=== PATIENT | male | born 1985 | race Caucasian/White ===

== ENCOUNTER 2024-06-03 10:06 | Day surgery (SDC) | payer OTHER ==
[2024-06-03 11:13] VITALS: BP 137/84; TEMP 98
[2024-06-03] MEDS: WATER IVPB SCH (11:19)
[2024-06-03] MEDS: RISANKIZUMAB RZAA IVPB SCH (11:19)
[2024-06-03] MEDS: DEXTROSE 5% IVPB SCH (11:19)
== END 2024-06-03 13:02 | disposition home or self-care (01) ==
LOC: ONC/OP 10:06
PROVIDERS: ATTEND Internal Medicine
DX: K50.90 Crohn's disease, unspecified, without complications (principal)
CPT/HCPCS: 96413; J7070

== ENCOUNTER 2025-10-14 06:19 | Day surgery (SDC) | payer OTHER ==
[2025-10-13 12:31] VITALS: BMI 49.4
[2025-10-14] MEDS ORDERED: Lidocaine 1% PF 5 ML VIAL ONE (07:28)
[2025-10-14] MEDS ORDERED: GLYCOPYRROLATE/PF 0.2 MG/ML VIAL ONE (07:29)
[2025-10-14] MEDS ORDERED: PROPOFOL 200 MG/20 ML VIAL ONE (08:04)
[2025-10-14] MEDS ORDERED: PHENYLEPHRINE-NS 100 MCG/ML 10 ML SYRINGE ONE (08:06)
== END 2025-10-14 09:20 | disposition home or self-care (01) ==
LOC: SDC 06:19
PROVIDERS: ATTEND Internal Medicine
PROC: 0DJD8ZZ Inspection of Lower Intestinal Tract, Via Natural or Artificial Opening Endoscopic (ICD-10-PCS; principal; 2025-10-14)
DX: K50.90 Crohn's disease, unspecified, without complications (principal); K60.30 Anal fistula, unspecified
CPT/HCPCS: J2704; J3490

== ENCOUNTER 2025-10-30 13:05 | Outpatient (CLI) | payer OTHER | END 2025-10-30 13:06 | disposition home or self-care (01) | LOC: SCSMRI 13:05 | PROVIDERS: ATTEND Otolaryngology Plastic Surgery within the Head & Neck | DX: H90.41 Sensorineural hearing loss, unilateral, right ear, with unrestricted hearing on the contralateral side (principal); J34.89 Other specified disorders of nose and nasal sinuses; G93.2 Benign intracranial hypertension | CPT/HCPCS: 70553; 76376 ==